=== PATIENT | female | born 1985 | race Caucasian/White ===

== ENCOUNTER 2020-12-19 12:37 | Outpatient (CLI) | payer BC, OTHER ==
--- NOTE | 2020-12-19 14:28 | XRAY Report ---
PROCEDURE: Finger(s) RT INDICATIONS: R FINGER PX TECHNIQUE: AP hand, 2 views of the middle finger(s) acquired. COMPARISON: None FINDINGS: Bones: No fractures or dislocations. No suspicious bony lesions. Soft tissues: No suspicious soft tissue calcifications. IMPRESSION: Normal right hand and right middle finger. Reviewed by: Uriah Langford on 12/19/2020 2:27 PM PDT Approved by: Uriah Langford on 12/19/2020 2:27 PM PDT Station ID: [id number]
== END 2020-12-19 12:38 | disposition home or self-care (01) ==
LOC: DI.N 12:37
PROVIDERS: ATTEND Physician Assistant Medical
DX: M79.644 Pain in right finger(s) (principal)